=== PATIENT | female | born 1990 | race Caucasian/White ===

== ENCOUNTER 2024-02-27 15:08 | Observation (INO) | payer BC, SELFPAY ==
[2024-02-27] VITALS (8 sets, daily range): BP systolic 103–123; BP diastolic 58–76; PULSE 65–80; TEMP 37; BMI 25.8
[2024-02-27] MEDS: BETAMETHASONE SOD PHOS/ACETATE 30 MG/5 ML VIAL 12 MG IM (16:51)
--- NOTE | 2024-02-27 17:04 | OBADM ---
This patient, Valentina Jean Baptiste, admitted to the OB room OB Post 115 for observation. Pt presented to unit complains of leaking fluid. Pt states she has been leaking about 1 week and a half, she went to nearest hospital, [facility] to get evaluated. They performed fern test and STD swab which were all negative, and she went to another hospital on with same complains. They did ultrasound and MELANY was normal. She states she felt increasing in leaking past tuesday. She presented to unit because she called office and was told to come in. ROM plus and cervical exam were performed and ROM Plus was positive and SVE 2/50/0. pt denies feeling of contractions. Patient/family oriented to hospital policies and general routines including ID bracelet, bed and alarms, visiting hours, pain management, procedures, bathroom and other care routines, personal items, smoking policy, room service/diet, and visiting hours. Patient/Family are encouraged to report perceived risks to care and to ask questions if they do not understand what they are told or what they should do.
[2024-02-27 17:05] LABS: Basophils Percent Auto 0.2 % (0.2-1.2); Eosinophils Absolute Auto 0.1 K/mm3 (0-0.3); Eosinophils Percent Auto 0.4 % (0-4.4); Hematocrit 34.8 % (37.0-47.0); Hemoglobin 11.8 g/dL (12.0-15.0); Immature Granulocyte Absolute 0.06 K/mm3 (0.00-0.031); Immature Granulocyte Percent A 0.4 % (0-0.5); Lymphocytes Percent Auto 13.2 % (18.3-44.2); Mean Corpuscular HGB Conc 33.9 g/dl (32-36); Mean Corpuscular Hemoglobin 32.2 pg (26-34); Mean Corpuscular Volume 95.1 fl (80-100); Mean Platelet Volume 10.6 fl (7.4-10.4); Monocytes Absolute Auto 0.9 K/mm3 (0.1-0.6); Monocytes Percent Auto 6.3 % (2.6-8.5); Neutrophils Absolute Auto 10.8 K/mm3 (1.3-6.7); Neutrophils Percent Auto 79.5 % (45.5-73.1); Platelet Count Result 272 k/mm3 (150-375); Red Blood Count 3.66 M/mm3 (4.2-5.4); Red Cell Distribution Width 12.1 % (11.5-14.5); White Blood Count 13.6 K/mm3 (4.5-10.0)
[2024-02-27] MEDS: LACTATED RINGERS 1,000 ML 125 ML IV CONT (17:16)
[2024-02-27] MEDS: AMPICILLIN 2 GM/NS 100 ML 2 GM/100 ML BAG IVPB (17:16)
[2024-02-27] MEDS: ERYTHROMYCIN LACTOBIONATE INJ 250 MG in SODIUM CHLORIDE 0.9% IV 100 ML 200 MG IVPB (17:56)
--- NOTE | 2024-02-27 18:33 | P.HP_ITS ---
H&P: HPI History of Present Illness Date/Time: 02/27/24 18:00 Chief Complaint: leaking fluid Narrative: 33 y.o. at 33 weeks 3 days by LMP= 1st trimester US. Decreased MELANY over last 2 US 1 wk apart. Having dime to quarter sized spots of clear fluid in underwear since 02/23/24. ROM Plus positive. SVE by RN /0. Review of Systems Review of Systems: All systems reviewed & are unremarkable except as noted in HPI and below Meds Home Medications and Allergies Allergies Allergy/AdvReac Type Severity Reaction Status Date / Time adhesive Allergy Blister Verified 02/27/24 16:31 Vital Signs Vital Signs - 24 hr 02/27/24 17:04 02/27/24 17:27 02/27/24 17:30 Temperature Pulse Rate 65 65 Blood Pressure 115/71 110/72 Oxygen Delivery Room Air 02/27/24 17:45 02/27/24 18:00 02/27/24 18:15 Temperature Pulse Rate 70 72 76 Blood Pressure 108/69 116/76 123/75 Oxygen Delivery 02/27/24 17:24 02/27/24 18:30 Temperature 98.6 F Pulse Rate 77 Blood Pressure 103/58 L Oxygen Delivery Exam Const: General: comfortable and no acute distress Neck: Neck: supple Resp: Effort & Inspection: normal respiratory effort Auscultation: clear to auscultation bilaterally Cardio: Rate: regular rate GI: GI Palp: Yes Soft to palpation Other: Nontender to palpation. + movement. : General: Yes bladder normal to palpation Skin: General skin exam: normal color and no rashes or lesions noted Neuro: Speech: normal speech Sensory Exam: normal sensation Extrem: General: normal to inspection Psych: Mental Status: mental status grossly normal Affect: normal affect H&P: Results Labs Labs: Short CBC 02/27/24 Range/Units 16:45 WBC 13.6 H (4.5-10.0) K/mm3 Hgb 11.8 L (12.0-15.0) g/dL Hct 34.8 L (37.0-47.0) % Plt Count 272 (150-375) k/mm3 Assessment and Plan Assessment and plan (1) Premature rupture of membranes: Code(s): O42.90 - Premature rupture of membranes, unspecified as to length of time between rupture and onset of labor, unspecified weeks of gestation Status: Acute (2) Anemia: Code(s): D64.9 - Anemia, unspecified Status: Acute (3) Scoliosis: Code(s): M41.9 - Scoliosis, unspecified Status: Acute Plan Plan of care discussed with Dr. Preston and pt. Recommend transfer to higher level facility d/t prematurity. Pt agrees. Contacted [facility] per pt request.
--- NOTE | 2024-02-27 18:37 | WPDOBADMIT ---
Obstetrics - Admit Note Admission Note: record reviewed. No pertinent additions to the history and/or any subsequent changes in the physical findings that are not consistent with the expected course of the were found. Additions to the history and/or subsequent changes in the physical findings follow. Premature rupture of membranes
--- NOTE | 2024-02-27 18:37 | PM.OBPNLAB ---
Pain Control Date/time seen: 02/27/24 18:30 Comments: Feeling occasional mild cramping Pelvic Exam Comments: 2cm per RN exam this afternoon Contractions Monitor mode: External Contraction pattern: Irregular Contraction intensity: Mild Status status: Category l Assessment and Plan Comments: Plan transfer. No evidence of active labor at this time.
--- NOTE | 2024-02-27 18:38 | PM.TDS ---
Transfer Discharge Sum: Prov Provider Date of admission: 02/27/24 Primary care physician: Arian Alfaro ([place]), Admitting clinician: Kendra Coombs CNM Attending physician on admission: Koki Amin Consults: Dr. Preston Attending physician on discharge: Koki Amin Discharging clinician: Kendra Coombs Anticipated date of transfer: 02/27/24 Receiving physician/facility: [facility] Dr. Claudio Braswell DS: Admitting Diagnosis Discharge Date 02/27/24 Admitting Diagnosis Premature Rupture of Membranes DS: Discharge Diagnosis Discharge Diagnosis (1) Premature rupture of membranes: Code(s): O42.90 - Premature rupture of membranes, unspecified as to length of time between rupture and onset of labor, unspecified weeks of gestation Status: Acute (2) Scoliosis: Code(s): M41.9 - Scoliosis, unspecified Status: Acute (3) Anemia: Code(s): D64.9 - Anemia, unspecified Status: Acute Plan s/p Cel[place], Ampicillin and Erythromycin Transfer Discharge Sum: Med Medications Active and Home Medications: Active Medications Amoxicillin (Amoxicillin 500 Mg Capsule) 500 mg PO Q8HR [facility] Stop: 03/05/24 06:01 Betamethasone Acet/Betameth SodPhos (Betamethasone Sod Phos/Acetate 30 Mg/5 Ml Vial) 12 mg IM Q24H [facility] Last Admin: 02/27/24 16:51 Dose: 12 mg Erythromycin (Erythromycin 333 Mg Tablet.Dr) 333 mg PO Q8HR [facility] Stop: 03/05/24 06:01 Ampicillin Sodium (Ampicillin 2 Gm/Ns 100 Ml) 2 gm in 100 mls @ 200 mls/hr IVPB Q6HR [facility] Stop: 02/29/24 12:29 Last Infusion: 02/27/24 17:56 Dose: Infused Erythromycin Lactobionate 250 (mg/ Sodium Chloride) 100 mls @ 200 mls/hr IVPB 0030,0630,1230,1830 [facility] Stop: 02/29/24 12:59 Last Admin: 02/27/24 17:56 Dose: 200 mls/hr Lactated Ringer's (Lr - Lactated Ringers Iv) 1,000 mls @ 125 mls/hr IV CONT .Q8H [facility] Last Admin: 02/27/24 17:16 Dose: 125 mls/hr Transfer Discharge Sum: Hosp Hospital Course Hospital course: Valentina Jean Baptiste is a 33 year old female Time Spent with Patient Time attestation: Total time spent providing and/or coordinating transfer services: Total time spent: Greater than 30 minutes Exam Const: General: comfortable and no acute distress Neck: Neck: supple Resp: Effort & Inspection: normal respiratory effort Auscultation: clear to auscultation bilaterally Cardio: Rate: regular rate GI: GI Palp: Yes Soft to palpation Other: Nontender to palpation. + movement. : General: Yes bladder normal to palpation Skin: General skin exam: normal color and no rashes or lesions noted Neuro: Speech: normal speech Sensory Exam: normal sensation Extrem: General: normal to inspection Psych: Mental Status: mental status grossly normal Affect: normal affect DS: Data Data Completed and Pending Labs on day of discharge: Labs from last 24 hours 02/27/24 16:45 WBC 13.6 H RBC 3.66 L Hgb 11.8 L Hct 34.8 L MCV 95.1 MCH 32.2 MCHC 33.9 RDW 12.1 Plt Count 272 MPV 10.6 H Immature Gran % (Auto) 0.4 Neut % (Auto) 79.5 H Lymph % (Auto) 13.2 L [place] % (Auto) 6.3 Eos % (Auto) 0.4 Baso % (Auto) 0.2 Lymph # (Auto) 1.80 [place] # (Auto) 0.9 H Eos # (Auto) 0.1 Baso # (Auto) 0.0 Abs Immat Gran (auto) 0.06 H Absolute Neuts (auto) 10.8 H Absolute Nucleated RBC 0.000 Nucleated RBC % 0.0 Blood Type O Positive Antibody Screen Pending
--- NOTE | 2024-02-27 18:59 | PM.OBPNLAB ---
Pain Control Date/time seen: 02/27/24 18:59 Comments: Limited bedside US performed. Fetus vertex. Contractions Monitor mode: External Contraction pattern: Irregular Contraction intensity: Mild Status status: Category l
--- NOTE | 2024-03-01 09:55 | P.DS_ITS ---
DS: Admitting Diagnosis Discharge Date 02/27/24 Admitting Diagnosis Decreased MELANY DS: Discharge Diagnosis Discharge Diagnosis (1) Premature rupture of membranes: Code(s): O42.90 - Premature rupture of membranes, unspecified as to length of time between rupture and onset of labor, unspecified weeks of gestation Status: Acute DS: Summary Hospital Course Hospital Course: ROM plus +, pt transferred to [facility] for higher level of care d/t prematurity. No evidence of active labor. Time Spent with Patient Time attestation: Total time spent providing and/or coordinating discharge services: Time spent: Greater than 30 minutes Exam Const: General: comfortable and no acute distress Neck: Neck: supple Resp: Effort & Inspection: normal respiratory effort Auscultation: clear to auscultation bilaterally Cardio: Rate: regular rate GI: GI Palp: Yes Soft to palpation Other: Nontender to palpation. + movement. : General: Yes bladder normal to palpation Other: clear fluid at perineum Skin: General skin exam: normal color and no rashes or lesions noted Neuro: Speech: normal speech Sensory Exam: normal sensation Extrem: General: normal to inspection Psych: Mental Status: mental status grossly normal Affect: normal affect Discharge Plan Discharge Attending physician on discharge: Kendra Coombs Consulting providers: Kendra Coombs Discharging Clinician: Kendra Coombs Anticipated Discharge Date/Time: 02/27/24 19:57 Patient Disposition: Other Activity: as tolerated Diet: as tolerated Discharge Instructions: OB ANTEPARTUM DISCHARGE INSTRUCTIONS This information is given to help you properly care for yourself at home after your discharge from the hospital. Follow these instructions until your doctor tells you otherwise. DIET: Additional Diet Instructions: ACTIVITY: Additional Activity Instructions: RETURN TO LABOR AND DELIVERY IF YOU HAVE: Additional Reasons to Return to Labor and Delivery: Contractions may feel like abdominal pain, tightening, cramping, pressure, back ache, or thigh ache. FOLLOW-UP CARE: To see in/on Valuables released to patient or family? Medications from home returned to patient? IF YOU HAVE ANY QUESTIONS REGARDING THESE INSTRUCTIONS, PLEASE CALL [phone]. IF PROBLEMS ARISE, CALL YOUR PROVIDER. IF EMERGENCY CARE IS NEEDED, [facility]S EMERGENCY ROOM IS AVAILABLE 24 HOURS A DAY. Date of admission: 02/27/24 15:08 Primary Care Provider: DominicArian) Admitting Provider: Koki Amin Attending physician on admission: Koki Amin Condition: Stable
== END 2024-02-27 20:00 | disposition other institution (70) ==
LOC: ANHOBPP 19:55 → ANHOBOP 02-28 07:55 → ANHOBPP 02-28 07:56 → ANHOBOP 02-28 08:05 → ANHOBPP 02-28 09:23
PROVIDERS: Advanced Practice Midwife; Admitting Provider Obstetrics & Gynecology Gynecology; PCP Internal Medicine; Visit Provider Obstetrics & Gynecology Gynecology
DX: O42.913 Preterm premature rupture of membranes, unspecified as to length of time between rupture and onset of labor, third trimester (principal); O99.013 Anemia complicating pregnancy, third trimester; D64.9 Anemia, unspecified; M41.9 Scoliosis, unspecified; Z3A.33 33 weeks gestation of pregnancy
CPT/HCPCS: 36415; 84112; 85025; 86850; 86880; 86900; 86901; 87081; 96365; 96372; 96375; 99199; G0378; G0379; J0290; J0702; J1364; J7120